=== PATIENT | male | born 1990 | race Caucasian/White ===

== ENCOUNTER 2016-05-24 23:27 | Emergency (ER) | payer OTHER ==
[2016-05-24 23:32] VITALS: TEMP 98.8
[2016-05-24] MEDS ORDERED: SODIUM CHLORIDE 0.9% 1,000 ML IV STA ×2 (23:44)
--- NOTE | 2016-05-24 23:47 | ED ---
General Adult HPI - General Chief complaint: Abdominal Pain Stated complaint: stomach pain Time Seen by Provider: 05/24/16 23:41 Source: patient, RN notes reviewed Mode of arrival: ambulatory Limitations: no limitations - History of Present Illness Initial comments: Patient 25-year-old male who presents emergency room today with chief complaint of increased right-sided abdominal pain. States this started earlier today the last half hours been more pulsating on the right side. Patient denies any other complaints or symptoms. States feels similar to when he had his appendix taken out. Patient denies any recent fever, chills, shortness of breath, chest pain, nausea or vomiting, numbness or tingling, dysuria or hematuria, constipation or diarrhea, headaches or visual changes, or any other complaints. - Related Data Home Medications Medication Instructions Recorded Confirmed Gabapentin [Neurontin] 800 mg PO QID 11/25/15 12/16/15 Mirtazapine [Remeron] 45 mg PO DAILY 11/25/15 12/16/15 QUEtiapine [SEROquel] 400 mg PO DAILY 11/25/15 12/16/15 Ranitidine HCl [Zantac] 150 mg PO BID 11/25/15 12/16/15 Allergies Allergy/AdvReac Type Severity Reaction Status Date / Time cefaclor [From Ceclor] Allergy Rash/Hives Verified 12/16/15 07:37 Review of Systems ROS Statement: Those systems with pertinent positive or pertinent negative responses have been documented in the HPI. ROS Other: All systems not noted in ROS Statement are negative. Past Medical History Past Medical History: No Reported History Past Surgical History: Appendectomy Past Psychological History: Bipolar, Depression Smoking Status: Current every day smoker Past Alcohol Use History: None Reported Past Drug Use History: Heroin, Marijuana General Exam - General Exam Comments Initial Comments: General: The patient is awake and alert, in no distress, and does not appear acutely ill. Eye: Pupils are equal, round and reactive to light, extra-ocular movements are intact. No nystagmus. There is normal conjunctiva bilaterally. No signs of icterus. Ears, nose, mouth and throat: There are moist mucous membranes and no oral lesions. Neck: The neck is supple, there is no tenderness or JVD. Cardiovascular: There is a regular rate and rhythm. No murmur, rub or gallop is appreciated. Respiratory: Lungs are clear to auscultation, respirations are non-labored, breath sounds are equal. No wheezes, stridor, rales, or rhonchi. Gastrointestinal: Soft, non-distended, non-tender abdomen without masses or organomegaly noted. There is no rebound or guarding present. No CVA tenderness. Bowel sounds are unremarkable. Musculoskeletal: Normal ROM, no tenderness. Strength 5/5. Sensation intact. Pulses equal bilaterally 2+. Neurological: A&O x 3. CN II-XII intact, There are no obvious motor or sensory deficits. Coordination appears grossly intact. Speech is normal. Skin: Skin is warm and dry and no rashes or lesions are noted. Psychiatric: Cooperative, appropriate mood & affect, normal judgment. Limitations: no limitations Course Vital Signs 05/24/16 23:29 Temperature 98.8 F Pulse Rate 67 Respiratory 18 Rate Blood Pressure 117/55 O2 Sat by Pulse 100 Oximetry Medical Decision Making - Medical Decision Making Patient reexamined at this time states still expresses some discomfort to the right flank area. CT reviewed and is negative for any acute abnormalities. Patient's labs been reviewed are unremarkable. Case discussed with attending physician Dr. Benson. Patient Will Be Discharged Home Advised to Follow-Up with Surgeon in the Morning. Advised Return If Any Symptoms Increase or Worsen or for Any Other Concerns. - Lab Data Result diagrams: 05/25/16 00:35 05/25/16 00:35 Lab Results 05/25/16 05/25/16 05/25/16 Range/Units 00:35 00:35 01:21 WBC 11.4 H (3.8-10.6) k/uL RBC 4.88 (4.30-5.90) m/uL Hgb 13.9 (13.0-17.5) gm/dL Hct 40.7 (39.0-53.0) % MCV 83.5 (80.0-100.0) fL MCH 28.5 (25.0-35.0) pg MCHC 34.1 (31.0-37.0) g/dL RDW 13.3 (11.5-15.5) % Plt Count 366 (150-450) k/uL Neutrophils % 67 % Lymphocytes % 22 % Monocytes % 5 % Eosinophils % 1 % Basophils % 1 % Neutrophils # 7.7 (1.3-7.7) k/uL Lymphocytes # 2.5 (1.0-4.8) k/uL Monocytes # 0.6 (0-1.0) k/uL Eosinophils # 0.1 (0-0.7) k/uL Basophils # 0.1 (0-0.2) k/uL Sodium 136 L (137-145) mmol/L Potassium 4.6 (3.5-5.1) mmol/L Chloride 98 (98-107) mmol/L Carbon Dioxide 25 (22-30) mmol/L Anion Gap 13 mmol/L BUN 11 (9-20) mg/dL Creatinine 0.70 (0.66-1.25) mg/dL Est GFR (MDRD) Af Amer >60 (>60 ml/min/1.73 sqM) Est GFR (MDRD) Non-Af >60 (>60 ml/min/1.73 sqM) Glucose 92 (74-99) mg/dL Calcium 9.4 (8.4-10.2) mg/dL Total Bilirubin 0.5 (0.2-1.3) mg/dL AST 24 (17-59) U/L ALT 29 (21-72) U/L Alkaline Phosphatase 78 (38-126) U/L Total Protein 8.6 H (6.3-8.2) g/dL Albumin 4.0 (3.5-5.0) g/dL Amylase 56 (30-110) U/L Lipase 112 (23-300) U/L Urine Color Yellow Urine Appearance Clear (Clear) Urine pH 7.0 (5.0-8.0) Ur Specific [place] 1.012 (1.001-1.035) Urine Protein Negative (Negative) Urine Glucose (UA) Negative (Negative) Urine Ketones Negative (Negative) Urine Blood Negative (Negative) Urine Nitrite Negative (Negative) Urine Bilirubin Negative (Negative) Urine Urobilinogen <2.0 (<2.0) mg/dL Ur Leukocyte Esterase Negative (Negative) Disposition Clinical Impression: Flank pain Disposition: HOME SELF-CARE Condition: Good Instructions: Abdominal Pain (ED) Additional Instructions: Please follow-up family doctor and surgery in the morning as discussed. Please continue with anti-inflammatories for pain. Please return to emergency room for any symptoms increase or worsen for new concerns. Referrals: None,Stated [Primary Care Provider] - 1-2 days Alhaji Sol MD [STAFF PHYSICIAN] - 1-2 days Time of Disposition: 02:57
--- NOTE | 2016-05-25 00:36 | XR ---
EXAM: XR Abdomen, 1 View. CLINICAL HISTORY: Reason: abdominal pain TECHNIQUE: Frontal upright views of the abdomen/pelvis. COMPARISON: No relevant prior studies available. FINDINGS: Gastrointestinal tract: Unremarkable. No dilation. Mild to moderate amount of colonic stool throughout, to the rectum. No free air. Bones/joints: Unremarkable. IMPRESSION: Bowel gas pattern within normal limits without evidence of free air, as above.
[2016-05-25 00:55] LABS: Basophils # (A) 0.1 k/uL (0-0.2); Basophils % (A) 1 %; CH 28.6; CHCM 34.4; Eosinophils # (A) 0.1 k/uL (0-0.7); Eosinophils % (A) 1 %; HCT 40.7 % (39.0-53.0); HDW 3.17; HGB 13.9 gm/dL (13.0-17.5); Luc # (Auto) 0.41; Luc % (Auto) 4; Lymphocytes # (A) 2.5 k/uL (1.0-4.8); Lymphocytes % (A) 22 %; MCH 28.5 pg (25.0-35.0); MCHC 34.1 g/dL (31.0-37.0); MCV 83.5 fL (80.0-100.0); Mean Platelet Volume 6.7; Monocytes # (A) 0.6 k/uL (0-1.0); Monocytes % (A) 5 %; Neutrophils # (A) 7.7 k/uL (1.3-7.7); Neutrophils % (A) 67 %; RBC 4.88 m/uL (4.30-5.90); RDW 13.3 % (11.5-15.5); WBC 11.4 k/uL (3.8-10.6); WBC (Perox) 11.78
[2016-05-25 01:04] LABS: Anion Gap 13 mmol/L; Blood Urea Nitrogen 11 mg/dL (9-20); Carbon Dioxide 25 mmol/L (22-30); Chloride 98 mmol/L (98-107); Glucose 92 mg/dL (74-99); Potassium 4.6 mmol/L (3.5-5.1); Sodium 136 mmol/L (137-145)
[2016-05-25 01:05] LABS: ALT 29 U/L (21-72); AST 24 U/L (17-59); Alkaline Phosphatase 78 U/L (38-126); Amylase 56 U/L (30-110); Calcium 9.4 mg/dL (8.4-10.2); Non-African American GFR(MDRD) >60 (>60 ml/min/1.73 sqM); Total Bilirubin 0.5 mg/dL (0.2-1.3); Total Protein 8.6 g/dL (6.3-8.2)
[2016-05-25 01:36] LABS: Appearance,Urine Clear (Clear); Bilirubin,Urine Negative (Negative); Glucose,Urine (UA) Negative (Negative); Ketones,Urine Negative (Negative); Leukocyte Esterase,Urine Negative (Negative); Nitrite,Urine Negative (Negative); Protein,Urine Negative (Negative); Specific Gravity,Urine 1.012 (1.001-1.035); UA Billing (MACRO vs. MICRO) CHEM; Urobilinogen,Urine <2.0 mg/dL (<2.0)
--- NOTE | 2016-05-25 02:25 | CT ---
EXAM: CT Abdomen and Pelvis Without Intravenous Contrast. CLINICAL HISTORY: Reason: Pain TECHNIQUE: Axial computed tomography images of the abdomen and pelvis without intravenous contrast. CTDI is 5.70 mGy and DLP is 275.30 mGy-cm This CT exam was performed using one or more of the following dose reduction techniques: automated exposure control, adjustment of the mA and/or kV according to patient size, and/or use of iterative reconstruction technique. COMPARISON: Earlier KUB of the same evening. FINDINGS: Lower thorax: No acute findings. ABDOMEN: Liver: Unremarkable. Gallbladder and bile ducts: Unremarkable. No calcified stones. No ductal dilation. Pancreas: Unremarkable. No ductal dilation. Spleen: There is splenomegaly with splenic length 13.5 cm. Adrenals: Unremarkable. No mass. Kidneys and ureters: At least 2 tiny nonobstructing stones are present within each kidney, without evidence of hydronephrosis, ureter stone or hydroureter. Stomach and bowel: Mild amount of colonic stool throughout. No grossly dilated small or large bowel loops are identified. Appendix: Previous appendectomy. PELVIS: Bladder: Unremarkable. No stones. Reproductive: Punctate calcification is seen just to left midline within the prostate. ABDOMEN and PELVIS: Intraperitoneal space: No free air. No significant fluid collection. Bones/joints: Slight leftward curvature of the lumbar spine that may in part be positional. No acute fracture. Vasculature: There are tiny calcifications bilaterally within the pelvis, presumably vascular/phleboliths. Lymph nodes: No adenopathy is seen. IMPRESSION: 1. Tiny bilateral renal calculi without secondary signs of urinary tract obstruction. 2. Splenomegaly.
[2016-05-25] MEDS ORDERED: KETOROLAC 60 MG/2 ML VIAL IM STA (02:56)
[2016-05-25 03:08] VITALS: BP 128/58; PULSE 89; RESP 16
== END 2016-05-25 03:14 | disposition home or self-care (01) ==
LOC: EC 23:27
DX: R10.9 Unspecified abdominal pain (principal); F31.9 Bipolar disorder, unspecified; F17.200 Nicotine dependence, unspecified, uncomplicated; Z88.1 Allergy status to other antibiotic agents; Z79.899 Other long term (current) drug therapy
CPT/HCPCS: 99284; 96372; 36415; 80053; 82150; 83690; 85025; 81003; 74000; 74176; J1885

== ENCOUNTER 2016-08-04 23:11 | Emergency (ER) | payer OTHER ==
[2016-08-04] MEDS: NALOXONE 0.4 MG/ML 10 ML VIAL IVP STA (23:36)
[2016-08-04 23:42] VITALS: RESP 16
--- NOTE | 2016-08-05 00:01 | ED ---
Overdose HPI - General Chief Complaint: Overdose Stated Complaint: Poss Overdose Time Seen by Provider: 08/04/16 23:23 Source: patient, police Mode of arrival: ambulatory Limitations: altered mental status - History of Present Illness Initial Comments: Patient is 26-year-old man brought to be evaluated after he had overdosed on heroin. The patient was reportedly found by police to be poorly responsive after they were at his residence an unrelated matter. The patient when aroused did express some suicidal ideation. Here the patient admits to months of depression and states that he follows through [facility], but feels that the medication and gave him was not helping, so he doesn't take it. The patient states that he feels he would be better off . Denies homicidal ideation or hallucinations. Complaint: accidental overdose -: hour(s) How Overdose Was Discovered: family/friend present at time Context: Accidental Overdose: wanted to get high Associated Symptoms: depression Treatments Prior to Arrival: none - Related Data Home Medications Medication Instructions Recorded Confirmed No Known Home Medications [No 08/04/16 08/04/16 Known Home Medications] Allergies Allergy/AdvReac Type Severity Reaction Status Date / Time cefaclor [From Ceclor] Allergy Rash/Hives Verified 08/04/16 23:17 Review of Systems ROS Statement: Those systems with pertinent positive or pertinent negative responses have been documented in the HPI. ROS Other: All systems not noted in ROS Statement are negative. Constitutional: Denies: fever, chills Respiratory: Denies: cough, dyspnea Cardiovascular: Denies: chest pain Gastrointestinal: Denies: abdominal pain Musculoskeletal: Denies: back pain Neurological: Denies: headache Past Medical History Past Medical History: No Reported History History of Any Multi-Drug Resistant Organisms: None Reported Past Surgical History: Appendectomy Past Psychological History: Bipolar, Depression Smoking Status: Current every day smoker Past Alcohol Use History: None Reported Past Drug Use History: Heroin, Marijuana General Exam Limitations: altered mental status General appearance: alert, in no apparent distress Head exam: Present: atraumatic, normocephalic Respiratory exam: Present: normal lung sounds bilaterally. Absent: respiratory distress, wheezes, rales, rhonchi, stridor Cardiovascular Exam: Present: regular rate, normal rhythm, normal heart sounds. Absent: systolic murmur, diastolic murmur, rubs, gallop GI/Abdominal exam: Present: soft. Absent: tenderness, guarding, rebound Extremities exam: Absent: pedal edema, calf tenderness Skin exam: Present: warm, dry, intact, normal color, other (Multiple needle tracks.). Absent: rash Course Vital Signs 08/04/16 08/04/16 08/05/16 23:14 23:39 00:25 Temperature 97.9 F Pulse Rate 81 80 75 Respiratory 18 16 16 Rate Blood Pressure 110/63 100/62 103/59 O2 Sat by Pulse 91 L 100 97 Oximetry 08/05/16 08/05/16 08/05/16 01:00 01:42 04:35 Temperature Pulse Rate 62 67 78 Respiratory 16 16 16 Rate Blood Pressure 106/61 102/66 99/55 O2 Sat by Pulse 97 96 100 Oximetry 08/05/16 05:00 Temperature Pulse Rate 66 Respiratory 16 Rate Blood Pressure 95/53 O2 Sat by Pulse 96 Oximetry Medical Decision Making - Medical Decision Making Patient is 26-year-old man with a narcotic overdose, who was having some mood disorder symptoms as well. Patient was seen and evaluated and he does contract for safety. He will follow with [facility]. Discussed return parameters. He was observed in the emergency department to ensure that as he Narcan was resolving he remained alert and he is alert now, with no symptoms of respiratory depression. - Lab Data Result diagrams: 08/04/16 23:25 08/04/16 23:25 Lab Results 08/04/16 08/04/16 08/04/16 Range/Units 23:25 23:25 23:25 WBC 9.9 (3.8-10.6) k/uL RBC 5.11 (4.30-5.90) m/uL Hgb 14.3 (13.0-17.5) gm/dL Hct 42.8 (39.0-53.0) % MCV 83.9 (80.0-100.0) fL MCH 27.9 (25.0-35.0) pg MCHC 33.3 (31.0-37.0) g/dL RDW 14.9 (11.5-15.5) % Plt Count 284 (150-450) k/uL Neutrophils % 55 % Lymphocytes % 32 % Monocytes % 7 % Eosinophils % 2 % Basophils % 1 % Neutrophils # 5.4 (1.3-7.7) k/uL Lymphocytes # 3.2 (1.0-4.8) k/uL Monocytes # 0.7 (0-1.0) k/uL Eosinophils # 0.2 (0-0.7) k/uL Basophils # 0.1 (0-0.2) k/uL Sodium 142 (137-145) mmol/L Potassium 3.6 (3.5-5.1) mmol/L Chloride 104 (98-107) mmol/L Carbon Dioxide 27 (22-30) mmol/L Anion Gap 11 mmol/L BUN 14 (9-20) mg/dL Creatinine 0.90 (0.66-1.25) mg/dL Est GFR (MDRD) Af Amer >60 (>60 ml/min/1.73 sqM) Est GFR (MDRD) Non-Af >60 (>60 ml/min/1.73 sqM) Glucose 86 (74-99) mg/dL Plasma Lactic Acid Amor 0.8 (0.7-2.0) mmol/L Calcium 9.8 (8.4-10.2) mg/dL Total Bilirubin 0.9 (0.2-1.3) mg/dL AST 123 H (17-59) U/L ALT 171 H (21-72) U/L Alkaline Phosphatase 85 (38-126) U/L Total Protein 8.3 H (6.3-8.2) g/dL Albumin 4.5 (3.5-5.0) g/dL Acetaminophen <10.0 ug/mL Serum Alcohol <10 mg/dL - EKG Data -: EKG Interpreted by Id EKG shows normal: sinus rhythm, axis (Normal), intervals (Normal), QRS complexes (Normal), ST-T waves (Normal) Rate: normal (Rate 72 bpm) Interpretation: normal EKG Disposition Clinical Impression: Mood disorder, Narcotic abuse Disposition: HOME SELF-CARE Condition: Good Instructions: Mood Disorders (ED), Adult Overdose (ED) Additional Instructions: As we discussed, follow-up with community mental health today. Return if there is any recurrence of your symptoms. Referrals: None,Stated [Primary Care Provider] - 1-2 days
[2016-08-05 00:15] LABS: Basophils # (A) 0.1 k/uL (0-0.2); Basophils % (A) 1 %; CH 28.5; CHCM 34.1; Eosinophils # (A) 0.2 k/uL (0-0.7); Eosinophils % (A) 2 %; HCT 42.8 % (39.0-53.0); HDW 2.96; HGB 14.3 gm/dL (13.0-17.5); Luc # (Auto) 0.38; Luc % (Auto) 4; Lymphocytes # (A) 3.2 k/uL (1.0-4.8); Lymphocytes % (A) 32 %; MCH 27.9 pg (25.0-35.0); MCHC 33.3 g/dL (31.0-37.0); MCV 83.9 fL (80.0-100.0); Mean Platelet Volume 6.9; Monocytes # (A) 0.7 k/uL (0-1.0); Monocytes % (A) 7 %; Neutrophils # (A) 5.4 k/uL (1.3-7.7); Neutrophils % (A) 55 %; RBC 5.11 m/uL (4.30-5.90); RDW 14.9 % (11.5-15.5); WBC 9.9 k/uL (3.8-10.6); WBC (Perox) 9.08
[2016-08-05 00:27] LABS: ALT 171 U/L (21-72); AST 123 U/L (17-59); Acetaminophen <10.0 ug/mL; Alcohol <10 mg/dL; Alkaline Phosphatase 85 U/L (38-126); Anion Gap 11 mmol/L; Blood Urea Nitrogen 14 mg/dL (9-20); Calcium 9.8 mg/dL (8.4-10.2); Carbon Dioxide 27 mmol/L (22-30); Chloride 104 mmol/L (98-107); Glucose 86 mg/dL (74-99); Non-African American GFR(MDRD) >60 (>60 ml/min/1.73 sqM); Potassium 3.6 mmol/L (3.5-5.1); Sodium 142 mmol/L (137-145); Total Bilirubin 0.9 mg/dL (0.2-1.3); Total Protein 8.3 g/dL (6.3-8.2)
[2016-08-05] MEDS: NALOXONE 0.4 MG/ML 10 ML VIAL IVP STA (01:40)
[2016-08-05] MEDS ORDERED: NALOXONE 0.4 MG/ML 10 ML VIAL IVP STA (03:10)
[2016-08-05 07:30] VITALS: BP 100/61; PULSE 62; TEMP 98.1
== END 2016-08-05 07:20 | disposition home or self-care (01) ==
LOC: EC 23:11
DX: F11.10 Opioid abuse, uncomplicated (principal); F39 Unspecified mood [affective] disorder; F32.9 Major depressive disorder, single episode, unspecified; R45.851 Suicidal ideations; F17.200 Nicotine dependence, unspecified, uncomplicated; Z88.1 Allergy status to other antibiotic agents
CPT/HCPCS: 82075; 36415; 93005; 80053; 83605; 85025; 83520; 80320; 99285; 96374; 96376; J2310 ×2

== ENCOUNTER 2016-08-11 18:25 | Observation (INO) | payer OTHER ==
[2016-08-11] MEDS ORDERED: IV VANCOMYCIN PER PHARMACY 1 EACH MISC MISCELLANE PRN (18:56)
[2016-08-11] MEDS ORDERED: ACETAMINOPHEN TAB 325 MG TAB PO STA (18:56)
[2016-08-11] MEDS ORDERED: IBUPROFEN 600 MG TAB PO STA (18:56)
[2016-08-11] MEDS ORDERED: SODIUM CHLORIDE 0.9% 1,000 ML IV ONE ×2 (18:57→21:46)
--- NOTE | 2016-08-11 18:58 | ED ---
General Adult HPI - General Chief complaint: Skin/Abscess/Foreign Body Stated complaint: Hand Infection Time Seen by Provider: 08/11/16 18:45 Source: patient, RN notes reviewed, old records reviewed Mode of arrival: ambulatory Limitations: no limitations - History of Present Illness Initial comments: 26-year-old male presents the ED chief complaint of left hand swelling for the past 2 days. Patient ports that he is IV drug user and last used 3 days ago in his hand. Patient reports that he's noticed increased swelling and redness and is concerned for cellulitis and infection. Patient states that he was on antibiotics approximately a month ago for a infection in his hand but it did go down. Patient reports that the oral antibiotics recently. Patient reports he plans to go to [place] for drug rehab after he takes care of his hand. Patient reports that his hand is swollen to 2 times normal. Reports he has normal sensation. - Related Data Home Medications Medication Instructions Recorded Confirmed Gabapentin 800 mg PO QID 08/11/16 08/11/16 Mirtazapine [Remeron] 30 mg PO HS 08/11/16 08/11/16 Omeprazole [PriLOSEC] 20 mg PO AC-[id number] 08/11/16 08/11/16 QUEtiapine [SEROquel] 400 mg PO HS 08/11/16 08/11/16 Allergies Allergy/AdvReac Type Severity Reaction Status Date / Time cefaclor [From Ceclor] Allergy Rash/Hives Verified 08/04/16 23:17 Review of Systems ROS Statement: Those systems with pertinent positive or pertinent negative responses have been documented in the HPI. ROS Other: All systems not noted in ROS Statement are negative. Past Medical History Past Medical History: No Reported History History of Any Multi-Drug Resistant Organisms: None Reported Past Surgical History: Appendectomy Past Psychological History: Bipolar, Depression Smoking Status: Current every day smoker Past Alcohol Use History: None Reported Past Drug Use History: Heroin, Marijuana General Exam - General Exam Comments Initial Comments: 26-year-old male. No acute distress. Limitations: no limitations General appearance: alert, in no apparent distress Head exam: Present: atraumatic, normocephalic, normal inspection Eye exam: Present: normal appearance, PERRL, EOMI. Absent: scleral icterus, conjunctival injection, periorbital swelling ENT exam: Present: normal exam, mucous membranes moist Neck exam: Present: normal inspection. Absent: tenderness, meningismus, lymphadenopathy Respiratory exam: Present: normal lung sounds bilaterally. Absent: respiratory distress, wheezes, rales, rhonchi, stridor Cardiovascular Exam: Present: regular rate, normal rhythm, normal heart sounds. Absent: systolic murmur, diastolic murmur, rubs, gallop, clicks GI/Abdominal exam: Present: soft, normal bowel sounds. Absent: distended, tenderness, guarding, rebound, rigid Extremities exam: Present: normal inspection, full ROM, normal capillary refill. Absent: tenderness, pedal edema, joint swelling, calf tenderness Left Elbow exam: Present: normal inspection, full ROM Forearm Wrist exam: Present: normal inspection, full ROM, other (She has multiple excoriations from picking at his skin over his forearms.) Hand Wrist exam: Absent: normal inspection, full ROM (Patient's left hand is swollen and erythematous over the thenar eminence extending up to the fourth metacarpal.) Neuro motor exam: Present: wrist extension intact, thumb opposition intact, thumb IP flexion intact, thumb adduction intact Neurosensory exam: Present: radial nerve intact, ulnar nerve intact, median nerve intact Vascular: Present: normal capillary refill Back exam: Present: normal inspection Neurological exam: Present: alert, oriented X3, CN II-XII intact Psychiatric exam: Present: normal affect, normal mood Skin exam: Present: warm, dry, intact, normal color. Absent: rash Course Vital Signs 08/11/16 18:32 Temperature 98.9 F Pulse Rate 111 H Respiratory 20 Rate Blood Pressure 124/65 O2 Sat by Pulse 98 Oximetry Medical Decision Making - Medical Decision Making 26-year-old male presents the ED chief complaint of left hand swelling for the past 2 days. Patient ports that he is IV drug user and lashed up here 13 days ago in his hand. Patient reports that he's noticed increased swelling and redness and is concerned for cellulitis and infection. Patient states that he was on antibiotics approximately a month ago for a infection in his hand but it did go down. Patient reports that the oral antibiotics recently. Patient reports he plans to go to [place] for drug drug rehab after he takes care of his hand. Patient reports that his hand is swollen to 2 times normal. Reports he has normal sensation. Discussed this Dr. Lemos. We will make the patient for IV vancomycin. Patient given a hand x-ray as well. X-ray shows no evidence of any fractures. Evidence of significant soft tissue swelling. Patient will be managed with Toradol, Motrin, and a Noti for pain. - Radiology Data Radiology results: report reviewed An x-ray shows soft tissue swelling. No fracture. Disposition Clinical Impression: Cellulitis of left hand, Narcotic abuse Disposition: ADMITTED IP TO THIS HOSP Condition: Stable Referrals: Mikaela Shell MD [Primary Care Provider] - 1-2 days Time of Disposition: 19:12
[2016-08-11] MEDS ORDERED: ONDANSETRON 4 MG/2 ML VIAL IVP PRN (19:12)
[2016-08-11] MEDS ORDERED: KETOROLAC 30 MG/ML 1 ML VIAL IVP PRN (19:12)
[2016-08-11] MEDS ORDERED: NALOXONE 0.4 MG/ML 1 ML VIAL IV PRN (19:12)
[2016-08-11] MEDS ORDERED: oxyCODONE-APAP 5-325MG 1 EACH TAB PO PRN (19:12)
[2016-08-11] MEDS ORDERED: VANCOMYCIN 1,250 MG in SODIUM CHLORIDE 0.9% 250 ML IVPB ONE (19:30)
[2016-08-11] MEDS: SODIUM CHLORIDE 0.9% 1,000 ML IV SCH (19:42)
--- NOTE | 2016-08-11 19:56 | XR ---
EXAMINATION TYPE: XR hand complete LT DATE OF EXAM: 08/11/2016 COMPARISON: NONE HISTORY: Pain and redness TECHNIQUE: 3 views FINDINGS: I see no fracture nor dislocation. Metacarpals are intact. There is soft tissue swelling on the dorsum of the hand. There are no erosions. IMPRESSION: Soft tissue swelling. No fracture.
[2016-08-11 20:29] LABS: Basophils # (A) 0.1 k/uL (0-0.2); Basophils % (A) 1 %; CH 28.6; CHCM 33.3; Eosinophils # (A) 0.2 k/uL (0-0.7); Eosinophils % (A) 2 %; HCT 41.4 % (39.0-53.0); HDW 2.94; HGB 13.3 gm/dL (13.0-17.5); Luc # (Auto) 0.41; Luc % (Auto) 4; Lymphocytes # (A) 2.2 k/uL (1.0-4.8); Lymphocytes % (A) 23 %; MCH 27.7 pg (25.0-35.0); MCHC 32.1 g/dL (31.0-37.0); MCV 86.2 fL (80.0-100.0); Mean Platelet Volume 7.4; Monocytes # (A) 0.8 k/uL (0-1.0); Monocytes % (A) 9 %; Neutrophils # (A) 5.8 k/uL (1.3-7.7); Neutrophils % (A) 62 %; RDW 15.2 % (11.5-15.5); WBC 9.4 k/uL (3.8-10.6); WBC (Perox) 9.42
[2016-08-11 21:32] LABS: ALT 216 U/L (21-72); AST 119 U/L (17-59); Alkaline Phosphatase 81 U/L (38-126); Anion Gap 9 mmol/L; Blood Urea Nitrogen 12 mg/dL (9-20); Carbon Dioxide 28 mmol/L (22-30); Chloride 102 mmol/L (98-107); Glucose 115 mg/dL (74-99); Non-African American GFR(MDRD) >60 (>60 ml/min/1.73 sqM); Potassium 3.6 mmol/L (3.5-5.1); Sodium 139 mmol/L (137-145); Total Bilirubin 0.7 mg/dL (0.2-1.3); Total Protein 7.5 g/dL (6.3-8.2)
[2016-08-11 22:26] VITALS: BMI 21.9
[2016-08-11] MEDS ORDERED: GABAPENTIN 400 MG CAP PO STA (22:48)
[2016-08-12] MEDS: VANCOMYCIN 1,250 MG in SODIUM CHLORIDE 0.9% 250 ML IVPB SCH ×2 (05:32→12:39)
[2016-08-12] MEDS: GABAPENTIN 400 MG CAP PO SCH ×2 (08:38→12:45)
[2016-08-12] MEDS: SODIUM CHLORIDE 0.9% 1,000 ML IV SCH ×2 (08:50→16:50)
[2016-08-12] MEDS ORDERED: NICOTINE 21MG/24HR PATCH TRANSDERM SCH (09:00)
[2016-08-12] MEDS ORDERED: PANTOPRAZOLE 40 MG/10 ML VIAL IV SCH (09:00)
[2016-08-12 09:46] VITALS: RESP 20; TEMP 98
[2016-08-12 16:13] VITALS: BP 117/67; PULSE 71
--- NOTE | 2016-08-12 16:14 | P.PN ---
Subjective 26-year-old presented to the emergency room to be evaluated for left hand swelling onset 2 days prior. Patient states he uses IV drugs he has been using his hands. He states he last used 3 days ago. He noted swelling and redness. Patient states he uses IV heroin. Patient states he plans to go to [place] for drug rehab has an appointment on August 23. Patient stated that he was on antibiotics approximately a month ago for an infection in his hand but it did not go down states he has a history of IV drug abuse heroin Objective - Vital Signs Vital signs: Vital Signs Temp 98 F 08/12/16 07:00 Pulse 69 08/12/16 07:00 Resp 20 08/12/16 07:00 BP 119/67 08/12/16 07:00 Pulse Ox 99 08/12/16 11:27 Intake & Output 08/11/16 08/12/16 08/12/16 18:59 06:59 18:59 Intake Total 1890 Balance 1890 Weight 62.142 kg 67.5 kg Intake: Intake, IV Titration 1300 Amount Sodium Chloride 0.9% 1, 800 000 ml @ 100 mls/hr IV . Q10H [facility] Rx#:[id number] Vancomycin 1,250 mg In 250 Sodium Chloride 0.9% 250 ml @ 125 mls/hr IVPB ONCE ONE Rx#:[id number] Vancomycin 1,250 mg In 250 Sodium Chloride 0.9% 250 ml @ 125 mls/hr IVPB Q8H [facility] Rx#:[id number] Oral 590 Other: Voiding Method Toilet Toilet # Voids 1 - Exam Physical exam 26-year-old male sitting up in bed appears in no acute distress states less pain in the left hand Lungs essentially clear adequate air movement Heart S1-S2 audible regular Abdomen soft nontender Extremities the left hand is swollen and tender to the touch cellulitis redness lower extremities no edema - Labs CBC & Chem 7: 08/11/16 20:06 08/11/16 20:06 Labs: Abnormal Lab Results - Last 24 Hours (Table) 08/11/16 08/11/16 Range/Units 20:06 20:06 Creatinine 0.63 L (0.66-1.25) mg/dL Glucose 115 H (74-99) mg/dL Plasma Lactic Acid Amor 2.3 H* (0.7-2.0) mmol/L AST 119 H (17-59) U/L ALT 216 H (21-72) U/L Assessment and Plan Plan: Impression Present on admission left hand swelling with cellulitis suspect due to IV drug use History of IV drug abuse heroin active last use 2 days prior A bipolar disorder History of infection in his left hand 1 month prior on antibiotics failed outpatient treatment X-rays of the left hand no evidence of a fracture evidence of soft tissue swelling Plan Continue with the IV antibiotics vancomycin Pain control DVT and GI prophylaxis IV fluid for hydration Home meds as appropriate The above dictated assessment and findings were discussed with dr raphael . Impression and the plan of care have been dictated as directed. Iva Snider nurse practitioner acting as a scribe for dr raphael
[2016-08-12] MEDS ORDERED: RX INFO: IV CONTRAST WAS GIVEN 1 EACH MISC MISCELLANE PRN (17:58)
[2016-08-12] MEDS ORDERED: QUEtiapine 400 MG TAB PO SCH (21:00)
[2016-08-12] MEDS ORDERED: MIRTAZAPINE 15 MG TAB PO SCH (21:00)
--- NOTE | 2016-08-13 06:27 | CONS ---
DATE OF CONSULTATION: DATE OF SERVICE: 08/12/2016 REASON FOR CONSULTATION: Left hand cellulitis. HISTORY OF PRESENT ILLNESS: The patient is a 26-year-old male with a past medical history significant for IV drug use, previous history of IV drug use with abscess in the right ( ) that required drainage and continued to use his IV drugs. The patient did inject in his left hand about 3 days. The patient said that the area started getting more swollen and red and painful with worsening swelling and redness. The patient did present to the [facility] ER. The patient denies having any high-grade fever or chills though. The patient did have an x-ray of the left, which did show evidence of cellulitis, but no bony changes. White count was normal. The patient has been started on vancomycin, pharmacy to dose. He did mention that overall swelling and redness has slightly improved compared to yesterday. No skin breakdown. No drainage. ID was consulted for further recommendation regarding his antibiotic therapy. REVIEW OF SYSTEMS: Positive for weakness, no high-grade fever. EYES: No complaint. ENT: No complaint. RESPIRATORY: No complaint. CARDIOVASCULAR: No complaint. GENITOURINARY: No complaint. GASTROINTESTINAL: No complaint. MUSCULOSKELETAL: As per HPI. INTEGUMENTARY: ( ). ( ) He has bipolar depression. PAST SURGICAL HISTORY: Appendectomy. SOCIAL HISTORY: Positive for smoking and IV drug use. Denies any drinking. FAMILY HISTORY: No pertinent findings noticed. Allergies to CEFACLOR. Medications currently include the patient is on Tylenol, Neurontin, Motrin, Toradol, Remeron, Vancomycin pharmacy to dose, Narcan, nicotine patch, Zofran, Percocet, Protonix and Seroquel. On examination, blood pressure is 117/67 with a pulse of 71, temperature 98. He is 100% on room air. General description is a middle-age male lying in bed in no distress. No tachypnea or accessory muscle of respiration use. HEENT examination shows no pallor or scleral icterus. Oral mucous membranes are moist. NECK: Trachea central. There is no thyromegaly. LUNGS: Unlabored breathing. Clear to auscultation anteriorly. No wheeze or crackles. HEART: S1, S2. Regular rate and rhythm. ABDOMEN: Soft, no tenderness. No guarding or rigidity. EXTREMITIES: No edema of the feet. SKIN EXAMINATION: Left hand remains to be swollen and is slightly tender to touch. There is no fluctuation or drainage noticed. NEUROLOGICALLY: The patient is awake, alert, oriented x3. Mood and affect normal. LABS: Hemoglobin is 13.3, white count 9.4 with a BUN of 12, creatinine 0.63. Lactic acid was 2.3. Blood culture ( ) pending. DIAGNOSTIC IMPRESSION AND PLAN: 1. Patient with left hand cellulitis from IV drug use. Would need to make sure no evidence of any underlying abscess. The likely organism will be covered with the ( ) MRSA. 2. Patient who did have CEFACLOR allergy that does limit number of antibiotics that could be safely used. PLAN: 1. Will obtain a CT of the left hand with contrast to make sure no evidence of any abscess that may need to be drained. 2. Vancomycin, pharmacy to dose, target of 15 to continue. 3. We will follow up on his clinical condition and cultures to further adjust the medication if needed. Thank you for this consultation. Will follow this patient along with you.
[2016-08-13] MEDS ORDERED: PANTOPRAZOLE 40 MG TABLET PO SCH (07:30)
[2016-08-13] MEDS ORDERED: VANCOMYCIN TROUGH DUE 1 EACH MISC MISCELLANE ONE (11:00)
== END 2016-08-12 18:40 | disposition left against medical advice (07) ==
LOC: EC 18:25 → 5MS5E 18:59
PROVIDERS: ADMIT Family Medicine; ATTEND Family Medicine
DX: L03.114 Cellulitis of left upper limb (principal); F17.200 Nicotine dependence, unspecified, uncomplicated; F31.9 Bipolar disorder, unspecified; F11.10 Opioid abuse, uncomplicated; Z79.899 Other long term (current) drug therapy; Z88.1 Allergy status to other antibiotic agents
CPT/HCPCS: 99285 ×2; 96361 ×2; 96365 ×2; 96366 ×2; 96375; 36415; 80053; 83605; 85025; 87040; 73130; G0378 ×2; J3370 ×2; J1885; C9113

== ENCOUNTER 2016-08-13 08:08 | Inpatient (IN) | payer OTHER ==
--- NOTE | 2016-08-13 08:37 | ED ---
Wound/Laceration HPI - General Chief Complaint: Wound/Laceration Stated Complaint: abcess Time Seen by Provider: 08/13/16 08:18 Source: patient, RN notes reviewed Mode of arrival: ambulatory Limitations: no limitations - History of Present Illness Initial Comments: Patient is a 26-year-old male presents to the emergency room for evaluation. Patient states she was admitted here 2 days ago for hand cellulitis. Patient does admit to IV drug abuse. Patient states they started him on vancomycin. Patient states they're going to get a CT to see if they need to drain abscess in his hand. Patient states he left AGAINST MEDICAL ADVICE yesterday because the swelling went down. Patient states as soon as he got home last night at 6 PM the abscess got larger and formed a "head". Patient states that his friend today took a razor and tried to cut open the abscess. Patient states that he thinks they went to deep and now the bleeding will not stop. Patient states in the process of trying to cut open his hand, he lacerated his right thumb. Patient denies any other injuries during incident. Patient states his last tetanus vaccine was in 2012. - Related Data Home Medications Medication Instructions Recorded Confirmed Gabapentin 800 mg PO QID 08/11/16 08/13/16 Mirtazapine [Remeron] 30 mg PO HS 08/11/16 08/13/16 Omeprazole [PriLOSEC] 20 mg PO AC-BRKFST 08/11/16 08/13/16 QUEtiapine [SEROquel] 400 mg PO HS 08/11/16 08/13/16 Allergies Allergy/AdvReac Type Severity Reaction Status Date / Time cefaclor [From [facility]] Allergy Rash/Hives Verified 08/13/16 08:49 Review of Systems ROS Statement: Those systems with pertinent positive or pertinent negative responses have been documented in the HPI. ROS Other: All systems not noted in ROS Statement are negative. Past Medical History Past Medical History: No Reported History Additional Past Medical History / Comment(s): Bipolar History of Any Multi-Drug Resistant Organisms: None Reported Past Surgical History: Appendectomy Past Psychological History: Bipolar, Depression Smoking Status: Current every day smoker Past Alcohol Use History: None Reported Past Drug Use History: None Reported - Past Family History Father Family Medical History: No Reported History Mother Additional Family Medical History / Comment(s): Mother has depression and is an opoid addict. General Exam - General Exam Comments Initial Comments: Sitting in exam room, no distress. Limitations: no limitations General appearance: alert Head exam: Present: atraumatic, normocephalic, normal inspection Eye exam: Present: normal appearance ENT exam: Present: normal exam Neck exam: Present: normal inspection Respiratory exam: Absent: respiratory distress Left Hand Wrist exam: Present: full ROM, tenderness, laceration (3 cm open laceration over the first metacarpal area of the hand. Surrounding cellulitis and hand swelling.). Absent: normal inspection Right Hand Wrist exam: Present: full ROM, laceration (1 cm laceration over dorsal distal phalanx of the thumb) Back exam: Present: normal inspection Neurological exam: Present: alert, oriented X3, CN II-XII intact Psychiatric exam: Present: normal affect, normal mood Skin exam: Present: warm, dry. Absent: rash Course Vital Signs 08/13/16 08/13/16 08/13/16 08:11 09:25 10:42 Temperature 98.0 F 98.5 F 98.0 F Pulse Rate 114 H 101 H 85 Respiratory 20 16 18 Rate Blood Pressure 143/68 133/83 120/66 O2 Sat by Pulse 99 98 98 Oximetry Procedures - Laceration Laceration #1 Consent Obtained: verbal consent Indication: laceration Site: other (right thumb) Size (cm): 1 Description: linear Depth: simple, single layer Type of Sutures: other (Dermabond) Patient Tolerated Procedure: well, no complications Medical Decision Making - Medical Decision Making Patient is 26-year-old male presents emergency room for evaluation of left hand cellulitis, left hand laceration and right thumb laceration. Patient does have a fairly large laceration from where he cut the area with a razor. Area was covered with gauze and wrapped. Discussed with patient we cannot close the wound and he would need to be readmitted for IV antibiotics. Left thumb laceration repaired with Dermabond. Patient was restarted on Vanco. - Lab Data Result diagrams: 08/13/16 09:13 08/13/16 09:13 Lab Results 08/13/16 08/13/16 08/13/16 Range/Units 09:13 09:13 09:13 WBC 11.4 H (3.8-10.6) k/uL RBC 4.71 (4.30-5.90) m/uL Hgb 13.9 (13.0-17.5) gm/dL Hct 38.6 L (39.0-53.0) % MCV 82.0 (80.0-100.0) fL MCH 29.5 (25.0-35.0) pg MCHC 36.0 (31.0-37.0) g/dL RDW 15.0 (11.5-15.5) % Plt Count 286 (150-450) k/uL Neutrophils % 68 % Lymphocytes % 20 % Monocytes % 7 % Eosinophils % 1 % Basophils % 0 % Neutrophils # 7.8 H (1.3-7.7) k/uL Lymphocytes # 2.3 (1.0-4.8) k/uL Monocytes # 0.8 (0-1.0) k/uL Eosinophils # 0.1 (0-0.7) k/uL Basophils # 0.0 (0-0.2) k/uL Sodium 141 (137-145) mmol/L Potassium 3.7 (3.5-5.1) mmol/L Chloride 104 (98-107) mmol/L Carbon Dioxide 25 (22-30) mmol/L Anion Gap 12 mmol/L BUN 9 (9-20) mg/dL Creatinine 0.68 (0.66-1.25) mg/dL Est GFR (MDRD) Af Amer >60 (>60 ml/min/1.73 sqM) Est GFR (MDRD) Non-Af >60 (>60 ml/min/1.73 sqM) Glucose 108 H (74-99) mg/dL Plasma Lactic Acid Amor 1.3 (0.7-2.0) mmol/L Calcium 9.1 (8.4-10.2) mg/dL Total Bilirubin 0.6 (0.2-1.3) mg/dL AST 185 H (17-59) U/L ALT 369 H (21-72) U/L Alkaline Phosphatase 103 (38-126) U/L Total Protein 8.3 H (6.3-8.2) g/dL Albumin 4.3 (3.5-5.0) g/dL Disposition Clinical Impression: Laceration, Cellulitis of left hand, Laceration of right thumb Disposition: ADMITTED IP TO THIS [facility] Condition: Stable Decision Date: 08/13/16
[2016-08-13] MEDS ORDERED: SODIUM CHLORIDE 0.9% 1,000 ML IV ONE (08:39)
[2016-08-13] MEDS ORDERED: KETOROLAC 30 MG/ML 1 ML VIAL IVP STA (09:06)
[2016-08-13] MEDS ORDERED: IV VANCOMYCIN PER PHARMACY 1 EACH MISC MISCELLANE PRN (09:06)
[2016-08-13] MEDS ORDERED: NALOXONE 0.4 MG/ML 1 ML VIAL IV PRN (09:07)
[2016-08-13] MEDS ORDERED: KETOROLAC 30 MG/ML 1 ML VIAL IVP PRN (09:07)
[2016-08-13] MEDS ORDERED: TOPICAL SKIN ADHESIVE 1 EACH AMP TOPICAL ONE (09:15)
[2016-08-13] MEDS ORDERED: LIDOCAINE/EPINEPHR/TETRACAINE 5 ML BOTTLE TOPICAL ONE (09:15)
[2016-08-13 09:33] LABS: ALT 369 U/L (21-72); AST 185 U/L (17-59); Alkaline Phosphatase 103 U/L (38-126); Anion Gap 12 mmol/L; Blood Urea Nitrogen 9 mg/dL (9-20); Calcium 9.1 mg/dL (8.4-10.2); Carbon Dioxide 25 mmol/L (22-30); Chloride 104 mmol/L (98-107); Glucose 108 mg/dL (74-99); Non-African American GFR(MDRD) >60 (>60 ml/min/1.73 sqM); Potassium 3.7 mmol/L (3.5-5.1); Sodium 141 mmol/L (137-145); Total Bilirubin 0.6 mg/dL (0.2-1.3); Total Protein 8.3 g/dL (6.3-8.2)
[2016-08-13 09:40] LABS: Basophils % (A) 0 %; CH 28.1; CHCM 34.5; Eosinophils # (A) 0.1 k/uL (0-0.7); Eosinophils % (A) 1 %; HCT 38.6 % (39.0-53.0); HDW 3.08; HGB 13.9 gm/dL (13.0-17.5); Luc # (Auto) 0.44; Luc % (Auto) 4; Lymphocytes # (A) 2.3 k/uL (1.0-4.8); Lymphocytes % (A) 20 %; MCH 29.5 pg (25.0-35.0); Mean Platelet Volume 6.9; Monocytes # (A) 0.8 k/uL (0-1.0); Monocytes % (A) 7 %; Neutrophils # (A) 7.8 k/uL (1.3-7.7); Neutrophils % (A) 68 %; RBC 4.71 m/uL (4.30-5.90); WBC 11.4 k/uL (3.8-10.6); WBC (Perox) 11.95
[2016-08-13] MEDS ORDERED: VANCOMYCIN 1,500 MG in SODIUM CHLORIDE 0.9% 250 ML IVPB STA (09:42)
[2016-08-13] MEDS: SODIUM CHLORIDE 0.9% 1,000 ML IV SCH ×2 (10:34→20:28)
[2016-08-13] MEDS: LORazepam 2 MG/ML SYRINGE IV PRN ×3 (12:52→19:59)
[2016-08-13] MEDS: PANTOPRAZOLE 40 MG TABLET PO SCH (14:02)
[2016-08-13] MEDS: GABAPENTIN 400 MG CAP PO SCH ×3 (14:02→22:13)
[2016-08-13] MEDS ORDERED: RX INFO: IV CONTRAST WAS GIVEN 1 EACH MISC MISCELLANE PRN (15:07)
[2016-08-13 15:43] VITALS: BMI 20.7
[2016-08-13] MEDS: VANCOMYCIN 1,250 MG in SODIUM CHLORIDE 0.9% 250 ML IVPB SCH ×2 (16:02→23:57)
--- NOTE | 2016-08-13 17:14 | CT ---
EXAMINATION TYPE: CT hand LT w con DATE OF EXAM: 08/13/2016 COMPARISON: NONE HISTORY: ABCESS TO LEFT HAND CT DLP: 179.5 mGycm Automated exposure control for dose reduction was used. CONTRAST: Performed with IV Contrast, patient injected with 100 mL of Omnipaque 180. FINDINGS: Multiple axial sections were obtained from the distal radius to the tip of the fingers with intraveno us contrast. There is subcutaneous edema on the dorsum of the hand and wrist. I see no discrete fluid collection. I see no fracture nor dislocation. There is no evidence of bony destructive process. There is no path ologic enhancement. There is no sign of an abscess. Joint spaces are fairly normal. There is mild thi ckening of the joint capsule around the third MP joint. IMPRESSION: THERE IS SOME SUBCUTANEOUS EDEMA ON THE DORSUM OF THE HAND AND WRIST. NO EVIDENCE OF AN ABSCESS. NO S IGN OF OSTEOMYELITIS. There is thickening of the joint capsule at the third MP joint that could relate to synovitis.
[2016-08-13] MEDS: NICOTINE 21MG/24HR PATCH TRANSDERM STA ×2 (19:59→20:28)
[2016-08-13] MEDS ORDERED: MIRTAZAPINE 15 MG TAB PO SCH (21:00)
[2016-08-13] MEDS ORDERED: QUEtiapine 400 MG TAB PO SCH (21:00)
[2016-08-14] MEDS: SODIUM CHLORIDE 0.9% 1,000 ML IV SCH (05:29)
[2016-08-14] MEDS ORDERED: NON-FORMULARY DRUG (Omeprazole 20 MG) PO SCH (07:30)
[2016-08-14 07:39] VITALS: BP 110/69; TEMP 97.8
[2016-08-14] MEDS: NICOTINE 21MG/24HR PATCH TRANSDERM SCH ×2 (08:03→08:18)
[2016-08-14] MEDS: VANCOMYCIN 1,250 MG in SODIUM CHLORIDE 0.9% 250 ML IVPB SCH (08:03)
[2016-08-14] MEDS: GABAPENTIN 400 MG CAP PO SCH ×2 (08:04→13:45)
[2016-08-14] MEDS: PANTOPRAZOLE 40 MG TABLET PO SCH (08:05)
[2016-08-14] MEDS: LORazepam 2 MG/ML SYRINGE IV PRN ×2 (08:05→13:54)
--- NOTE | 2016-08-14 10:13 | HP ---
CHIEF COMPLAINT: A 26-year-old white male with right hand cellulitis. He signed out AGAINST MEDICAL ADVICE yesterday, went home and had his friend cut open his arm with a switchblade, drain a bunch of pus. The friend continued to cut deeper and across his entire hand into his thumb of his other hand and now bleeding would not stop. He came to the hospital, in the ER was admitted for cellulitis of the hand. HOME MEDICINES: 1. Gabapentin. 2. Remeron. 3. Prilosec. 4. Seroquel. Past medical history of bipolar depression. Current every day smoker. No alcohol. Fourteen-point review of systems negative except for heroin abuse and severe anxiety and depression. PAST MEDICAL HISTORY: Father and mother negative. Blood pressure 120s to 140s over 60s to 70s. O2 98% to 99% on room air. Heart rate 85 to 114, respirations 16 to 20, temp 98. Right hand redness, full range of motion. Laceration, I would say, about 2 inches long over the dorsum distal phalanx of the thumb into the thenar area. PSYCH: Appears anxious, nervous, is tearing off his hand wound at this time. Very stressed and anxious and rapid speech. Cranial nerves were intact. HEART: S1, S2. LUNGS: Clear. ASSESSMENT: 1. Cellulitis of the right hand, abscess of the right hand, status post self-laceration. IV vancomycin as ordered at this time. 2. Bipolar. 3. Drug withdrawal from opiates, heroin, cocaine. Continue with current treatment. Psychiatric consult is pending.
--- NOTE | 2016-08-14 10:17 | CONS ---
DATE OF CONSULTATION: 08/13/2016 REASON FOR CONSULTATION: Left hand cellulitis and a question of abscess. HISTORY OF PRESENT ILLNESS: The patient is a 26-year-old male who was admitted to the hospital initially for a left hand cellulitis and question of abscess. The patient was treated with IV vancomycin. I saw the patient yesterday. Vancomycin was continued. CT of the hand was ordered; however, the patient said that by that evening he was feeling better and the swelling and redness has improved; hence he signed out AMA. The patient went home. Four hours after discharge the patient started having throbbing pain to the hand and left hand area with the swelling more centered around the thumb base and the patient said it was coming up to the hand. He had one of his friends take a knife and try to open up that area. Doing such, he ( ) patient's right thumb on the dorsum aspect. He mentioned that he started having bleeding from it and the bleeding would not stop. With worsening pain, swelling and bleeding he presented back to the [facility] ER. The patient has been evaluated by the ER physician. No cultures were done. He was started on vancomycin and admitted to the hospital. I was asked to see the patient for further recommendation regarding his antibiotic therapy. REVIEW OF SYSTEMS: Positive for pain and swelling and tenderness of the left hand. Rest of systems being negative. PAST MEDICAL HISTORY: Bipolar depression and skin abscess and IV drug use. PAST SURGICAL HISTORY: Appendectomy, and drainage of the abscess. SOCIAL HISTORY: Positive smoking or IV drug use and no drinking. FAMILY HISTORY: No pertinent findings noticed. ALLERGY TO CEFACLOR. Medications include the patient is currently on Neurontin, Toradol, Ativan, Remeron, Narcan, nicotine patch, Protonix, Seroquel, vancomycin pharmacy to dose. On examination, blood pressure is 122/57, pulse of 93, temperature 98.2. He is 99% on room air. General description is a middle-aged male up in the bed in no distress. HEENT EXAMINATION: No pallor or scleral icterus. Mucous membrane moist. LUNGS: Unlabored breathing. Clear to auscultation anteriorly. HEART: S1, S2 regular rate and rhythm. ABDOMEN: Soft, no tenderness. EXTREMITIES: No edema of feet. Examination of the left hand; ( ) on the palmar aspect. With pressure no significant purulent material was noticed. The wound was clean. The culture was obtained. Some swelling was noticed. Also ( ) to the dorsal aspect of his right thumb. NEUROLOGICAL: Awake, alert, oriented x3. Mood and affect normal. LABS: Hemoglobin 13.1, white count 21.4 with a BUN of 9, creatinine 0.68. DIAGNOSTIC IMPRESSION AND PLAN: Patient with left hand cellulitis and concern for possible abscess likely from IV drug use that did not initially respond to the vancomycin, more likely Gram-positive skin demarco such as methicillin-resistant Staphylococcus aureus to be the likely pathogen, status post attempted I&D at home. PLAN: 1. Will obtain a CT of the hand to rule out any evidence of any abscess that needs to be drained or any injury to the ligaments or tendons by self-drainage of this area. 2. Culture has been obtained to direct antibiotic therapy. 3. Vancomycin, pharmacy to dose, with a target of 15. 4. Will follow on the clinical condition and cultures to further adjust the medication if needed. Thank you for this consultation. I will follow this patient along with you.
[2016-08-14 10:38] VITALS: PULSE 73; RESP 18
--- NOTE | 2016-08-14 13:05 | P.PN ---
Subjective 26-year-old being seen and evaluated currently has a sitter at the bedside sedated arousable to verbal stimuli. 26-year-old who presented after signing out AGAINST MEDICAL ADVICE on the returning within 12 hours. Patient had a friend cut open his arm with a switchblade apparently drained out a bunch of pus according to the patient. Patient states that he did go home and use IV heroin was worried that his hand wasn't getting any better and had his friend try to open up the drainage became concerned and came in with a laceration involving the right hand. Patiently admission was admitted on August 11 to the emergency room at that time the patient presented with left hand swelling. Patient was treated for cellulitis and infection started on IV vancomycin left AMA on the returning within several hours back to the emergency room on the with the above incident where he had his friend tried to open up the abscess resulting in his friend cutting open the abscess cavity deep could not stop the bleeding. Patient became concerned last rated his right thumb came back into the emergency room for reevaluation. Does have past medical history of bipolar depressive disorder. Upon returning to the emergency room on the being admitted patient was overly anxious nervous very stressed out speaking rapidly was concerned about the heroin that he had used before coming into the hospital a sitter was obtained patient be seen by psychiatric service Objective - Vital Signs Vital signs: Vital Signs Temp 97.8 F 08/14/16 07:00 Pulse 73 08/14/16 10:23 Resp 18 08/14/16 10:23 BP 110/69 08/14/16 07:00 Pulse Ox 98 08/14/16 07:00 Intake & Output 08/13/16 08/14/16 08/14/16 18:59 06:59 18:59 Intake Total 490 490 Balance 490 490 Weight 63.503 kg Intake: Intake, IV Titration 250 250 Amount Vancomycin 1,250 mg In 250 250 Sodium Chloride 0.9% 250 ml @ 125 mls/hr IVPB Q8HR [facility] Rx#:[id number] Oral 240 240 Other: Voiding Method Toilet Toilet # Voids 1 2 - Exam Physical exam 26-year-old arousable to verbal stimuli sitter at the bedside no new events lungs essentially clear adequate air movement on room air Heart S1-S2 audible and regular Abdomen flat nontender no reports of nausea vomiting Extremities no lower extremity edema noted a dressing to the right hand dry - Labs CBC & Chem 7: 08/13/16 09:13 08/13/16 09:13 Labs: Microbiology - Last 24 Hours (Table) 08/13/16 09:13 Blood Culture - Preliminary Blood No Growth after 24 hours 08/13/16 13:05 Gram Stain - Preliminary Hand - Left Wound Culture - Preliminary Assessment and Plan Plan: Impression Present on admission left hand cellulitis Depressive bipolar disorder Anxiety disorder nonspecified History of IV heroin abuse uses daily Present on admission self-inflicted laceration right thumb 1 cm treated with Dermabond in the emergency room Computed tomography scan of the left hand with contrast subcutaneous edema on the dorsum aspect left wrist no evidence of an abscess no sign of osteomyelitis Plan Continue with the sitter at the bedside patient safety Await psychiatric eval treatment of heroin withdrawal recommendations Continue conditions by infectious disease IV antibiotics per the recommendations Follow up on wound culture Repeat labs in the morning Further recommendations pending The above impression and plan of care have been discussed and directed by signing physician. Iva Snider nurse practitioner acting as scribe for signing physician.
[2016-08-14 13:16] LABS: Hepatitis B Surface Ag Index 0.15
[2016-08-14 13:33] LABS: Hepatitis C Virus IgG Ab Reactive (Negative)
[2016-08-14] MEDS ORDERED: VANCOMYCIN TROUGH DUE 1 EACH MISC MISCELLANE ONE (23:00)
== END 2016-08-14 15:05 | disposition left against medical advice (07) | DRG 603 ==
LOC: EC 08:08 → 4MS4W 10:45
PROVIDERS: ADMIT Family Medicine; ATTEND Family Medicine
DX: L03.114 Cellulitis of left upper limb (principal); F14.23 Cocaine dependence with withdrawal; F19.239 Other psychoactive substance dependence with withdrawal, unspecified; F17.200 Nicotine dependence, unspecified, uncomplicated; F41.9 Anxiety disorder, unspecified; S61.011A Laceration without foreign body of right thumb without damage to nail, initial encounter; F32.9 Major depressive disorder, single episode, unspecified; Z79.899 Other long term (current) drug therapy; Z88.1 Allergy status to other antibiotic agents; W26.8XXA Contact with other sharp object(s), not elsewhere classified, initial encounter; Y92.9 Unspecified place or not applicable
CPT/HCPCS: 12001; 36415; 80053; 80074; 83605; 85025; 87040; 87070; 87205; 96361; 96365; 96375; 99285